=== PATIENT | male | born 1995 | race Caucasian/White ===

== ENCOUNTER 2025-11-08 16:49 | Outpatient (CLI) | payer BC, SELFPAY ==
--- OUTSIDE RECORDS SUMMARY | 2015-12-15 02:57 | XMS_ITS | Continuity of Care Document ---
Author Organization [facility] Address [address] [place], [phone] Phone Care Team Providers Care Exchange Mechanic Name Role Phone Nadine Andrews Unavailable Unavailable Advance Directives Directive Yes / No Effective Date File Name No Information Encounters Encounter Description Practice Location Reason(s) For Visit Diagnoses Date Provider Providers Copied on Encounter [facility], [address] [place], [place], [id number], [place] tel:[phone] [facility] No Information Juliana Mccoy. [address] [facility] [place], , [address], [place]. tel:[phone] Family History Family Member Type Diagnosis Age At Onset No Information Payers Payer name Insurance type Covered libertarian ID Authoriza tion(s) No Information Social History Type Description Quantity Date Captured Comments Sex Male Smoking Status No Information Chief Complaint And Reason For Visit No Information Reason For Referral Reason For Referral No Information History Of Present Illness Encounter Date Complaint History Of Prese nt Illness No Information Functional Status Date Functional Assessmen t No Information Instructions Date Instruction Additional Infor mation No Information Assessments Type Assessment Date No Information Patient Care Teams Name Effective Dates (start - stop) Status Members No Information
--- NOTE | ~2025-11-08 | XR_ITS ---
XR thoracic spine 3V 11/08/2025 17:14 Indication: Back pain Procedure: 4 views thoracic spine Comparison: No prior studies for comparison. Findings: No paraspinal soft tissue abnormality. Pedicles intact. Surrounding osseous structures and soft tissues are unremarkable. Pedicles intact. Mild levocurvature of the thoracic spine. No fracture, subluxation or dislocation. Impression: 1: No significant abnormality of the thoracic spine. Reviewed, dictated and finalized at location O. GE AUDITOR Impression: 1: No significant abnormality of the thoracic spine.
--- NOTE | ~2025-11-08 | XR_ITS ---
XR lumbar spine min 4V 11/08/2025 17:14 Indication: Low back pain. Procedure: 5 views lumbar spine Comparison: No prior studies for comparison. Findings: There is disc narrowing at L5-S1. No fracture, subluxation or dislocation. Pedicles intact. No evidence for spondylolisthesis. Vertebral body heights are maintained. Mild inferior endplate degenerative change at L5. Pedicles intact. Sacral foramen are symmetric. Impression: 1: Mild lumbar spondylosis. Reviewed, dictated and finalized at location O. TS MARKETER Impression: 1: Mild lumbar spondylosis.
== END 2025-11-08 16:50 | disposition home or self-care (01) ==
PROVIDERS: PCP Nurse Practitioner Family; Visit Provider Nurse Practitioner Family
DX: G89.29 Other chronic pain (principal); M54.9 Dorsalgia, unspecified; M43.06 Spondylolysis, lumbar region
CPT/HCPCS: 72072; 72110